=== PATIENT | female | born 2000 | race Two or more races ===

== ENCOUNTER 2024-12-23 16:09 | Emergency (ER) | payer OTHER ==
[~2024-12-23] VITALS: Ht 167.6 cm; Wt 83.6 kg
--- NOTE | 2024-12-23 16:59 | ED.PDOC ---
Melissa. trauma (HPI) HPI Comments A 24 YEAR OLD FEMALE PRESENTS TO THE ED WITH COMPLAINT OF HEADACHE S/P HEAD INJURY. PATIENT STATES SHE WAS AT WORK TODAY AND A PALLET OF BOXES ACCIDENTALLY FELL AND HIT THE TOP OF HER HEAD AND HER MIDDLE BACK AT ABOUT 0900 TODAY. PATIENT REPORTS SHE IS NOW EXPERIENCING A HEADACHE AND MIDDLE BACK PAIN. PATIENT DENIES NECK INJURY, LOC, VISION CHANGES, FEVER, CHILLS, SHORTNESS OF BREATH, CHEST PAIN, ABDOMINAL PAIN, NAUSEA, VOMITING, OR OTHER COMPLAINTS. NO OTHER SYMPTOMS OR MODIFYING FACTORS AT THIS TIME. PATIENT IS ALERT, ORIENTED X 4, AND HAS STEADY GAIT. Chief Complaint: Head Injury Time Seen by MD: 16:13 Reviewed notes: Nurses Notes, Medications, Allergies Allergies: Coded Allergies: No Known Drug Allergy (Verified Allergy, Unknown, 12/23/24) Information Source: Patient Mode of Arrival: Ambulatory Severity: Moderate Timing: Hours Duration: Since onset, Hours Prehospital treatment: None Location: Back, Head Location of laceration: None Mechanism: Blunt trauma Associated signs and symtoms: Headache Past Medical History PAST MEDICAL HISTORY: Denies Surgical History: Denies all surgeries ERP BUSINESS ANALYST History: No Pertinent ERP BUSINESS ANALYST History Family History Family History: Reviewed,noncontributory to illness Social History Smoker: Non-Smoker Alcohol: Denies ETOH Use Drugs: Denies Drug Use Lives In: Home Constitutional: denies: chills, diaphoresis, fatigue, fever, malaise, sweats, weakness, others EENTM: denies: blurred vision, double vision, ear bleeding, ear discharge, ear drainage, ear pain, ear ringing, eye pain, eye redness, hearing loss, mouth pain, mouth swelling, nasal discharge, nose bleeding, nose congestion, nose pain, photophobia, tearing, throat pain, throat swelling, voice changes, others Respiratory: denies: cough, hemoptysis, orthopnea, SOB at rest, shortness of breath, SOB with excertion, stridor, wheezing, others Cardiovascular: denies: chest pain, dizzy spells, diaphoresis, Dyspnea on exertion, edema, irregular heart beat, left arm pain, lightheadedness, palpitations, PND, syncope, others Gastrointestinal: denies: abdomen distended, abdominal pain, blood streaked bowels, constipated, diarrhea, dysphagia, difficulty swallowing, hematemesis, melena, nausea, poor appetite, poor fluid intake, rectal bleeding, rectal pain, vomiting, others Genitourinary: denies: abnormal vagina bleeding, burning, dyspareunia, dysuria, flank pain, frequency, hematuria, incontinence, pain, , vagina discharge, urgency, others Neurological: reports: headache; denies: dizziness, fainting, left sided numbness, left sided weakness, numbness, paresthesia, pre-existing deficit, right sided numbness, right sided weakness, seizure, speech problems, tingling, tremors, weakness, others Musculoskeletal: reports: back pain, muscle pain; denies: gout, joint pain, joint swelling, muscle stiffness, neck pain, others Integumetry: denies: bruises, change in color, change in hair/nails, dryness, laceration, lesions, lumps, rash, wounds, others Allergic/Immunocompromised: denies: Difficulty Healing, Frequent Infections, Hives, Itching, others Hematologic/Lymphatic: denies: anemia, blood clots, easy bleeding, easy bruising, swollen glands, others Endocrine: denies: excessive hunger, excessive sweating, excessive thirst, excessive urination, flushing, intolerance to cold, intolerance to heat, unexplained weight gain, unexplained weight loss, others Psychiatric: denies: anxiety, bipolar disorder, depression, hopeless, panic disorder, schizophrenia, sleepless, suicidal, others All Other Systems: Reviewed and Negative Physical Exam General Appearance: No Apparent Distress, Normal HEENT: Head (NO CONTUSIONS AND HEMATOMAS OF SCALP, NO DEFORMITY. ), Normal ENT Inspection, PERRL/EOMI, Pharynx Normal, TMs Normal Neck: Full Range of Motion, Non-Tender, Normal, Normal Inspection Respiratory: Chest Non-Tender, Lungs Clear, No Accessory Muscle Use, No Respiratory Distress, Normal Breath Sounds Cardiovascular: No Edema, No JVD, No Murmur, No Gallop, Normal Peripheral Pulses, Regular Rate/Rhythm Breast Exam: Deferred Gastrointestinal: No Organomegaly, Non Tender, No Pulsatile Mass, Normal Bowel Sounds, Soft Genitalia: Deferred Pelvic: Deferred Rectal: Deferred Extremities: No calf tenderness, Normal capillary refill, Normal inspection, Normal range of motion, Non-tender, No pedal edema Musculoskeletal : Location: Bilateral Extremity Location: Back Apperance: Tenderness (MUSCLE SPASM OF MIDDLE BACK, NO BONY TENDERNESS, SWELLING AND DEFORMITY. ) Neurologic: Alert, inspector type II-XII nml as Tested, No Motor Deficits, Normal Affect, Normal Mood, No Sensory Deficits Cerebellar Function: Normal Reflexes: Normal Skin: Dry, Normal Color, Warm Peripheral Pulses: 2+ carotid (R), 2+ carotid (L), 2+ dorsalis pedis (R), 2+ dorsalis pedis (L) Lymphatic: No Adenopathy Was a procedure done? Was a procedure done?: No Differential Diagnosis Multiple Trauma: Closed Head Injury, Fractures, Spine Injury, Contusion, Other (MID BACK STRAIN, MUSCLE SPASM) X-Ray, Labs, Meds, VS Vital Signs Date Time Temp Pulse Resp B/P (MAP) Pulse Ox O2 Delivery O2 Flow Rate FiO2 12/23/24 17:00 98.8 72 20 135/82 (99) 97 98.8 12/23/24 17:00 72 20 97 Room Air 12/23/24 16:16 98.5 73 14 131/89 97 98.5 CLINICAL HISTORY: INJURY TECHNIQUE: Helical imaging carried out from skull base to vertex without intravenous contrast. This exam was performed according to our departmental dose optimization program. Up-to-date CT equipment and radiation dose reduction techniques are utilized as appropriate. CTDIVol: 56.4 mGy DLP: 968.7 mGy-cm WID: COMPARISON: None FINDINGS: The ventricles and subarachnoid spaces are normal in size and configuration. There is no midline shift or mass effect. The price white matter interfaces are maintained. The basal cisterns are patent. There is no evidence of acute intracranial hemorrhage or extra-axial fluid collection. The mastoid air cells and visualized paranasal sinuses are well-aerated aside from moderate mucosal th ickening of the bilateral frontal sinuses.. IMPRESSION: 1. No acute intracranial abnormality. 2. Moderate mucosal thickening of the bilateral frontal sinuses. Correlate clinically for acute sinusitis. ATED BY: ASTON MAHMOOD MD DICTATED DATE/TIME: 12/23/241704 SIGNED BY: ASTON MAHMOOD MD SIGNED DATE/TIME: 12/23/241704 CC: X-Ray, Labs, Meds, VS Comment EXTERNAL MEDICAL RECORDS REVIEWED: [NONE] INDEPENDENT HISTORIANS: [NONE] SOCIAL DETERMINANTS OF HEALTH: [NONE] LABS ORDERED: NONE REVIEWED AND INTERPRETED RESULTS: NONE IMAGING ORDERED: CT BRAIN XR T-SPINE: [INTERPRETED BY ME. NO ACUTE FINDINGS. NO FRACTURES OR DISLOCATION. PENDING RADIOLOGIST REPORT.] TREATMENTS ORDERED: TYLENOL 1G PO PROCEDURES PERFORMED: NONE CRITICAL CARE TIME: NONE I HAVE DISCUSSED THE PATIENT WITH THE ATTENDING PHYSICIAN DR. LEE AND HE AGREES WITH THE PATIENT'S PLAN OF CARE AND DISPOSITION. BASED ON HISTORY OF PRESENT ILLNESS, AND PHYSICAL EXAM, PATIENT WILL BE DISCHARGED HOME. DISCUSSED PLAN FOR DISCHARGE HOME WITH RX [MOTRIN AND ROBAXIN ]. MEDICATION WARNINGS GIVEN. SHARED DECISION MAKING: DISCUSSED WITH PATIENT THAT THEIR WORKUP WAS NORMAL. PATIENT INSTRUCTED TO FOLLOW UP WITH PRIMARY CARE PROVIDER IN 1-2 DAYS FOR RE- EVALUATION OF SYMPTOMS. PATIENT VERBALIZES UNDERSTANDING TO RETURN TO ED FOR NEW OR WORSENING SYMPTOMS OR IF FOLLOW UP WITH PCP CANNOT BE OBTAINED. PATIENT FEELS COMFORTABLE GOING HOME AT THIS TIME. ALL QUESTIONS ADDRESSED AT TIME OF DISCHARGE. Images Reviewed?: Images reviewed and evaluated by me Time of 1ST Reevaluation: 17:36 Reevaluation 1ST: Improved Patient Education/Counseling: Diagnosis, Treatment, Need For Follow Up Family Education/Counseling: Diagnosis, Treatment, Need For Follow Up Medical Screening: No EMC Exist At This Time Departure 1 Departure Time of Disposition: 17:36 Impression: Primary Impression: Acute headache Qualified Codes: G44.319 - Acute post-traumatic headache, not intractable Additional Impressions: Head injury Qualified Codes: S09.90XA - Unspecified injury of head, initial encounter Strain of mid-back Qualified Codes: S29.012A - Strain of muscle and tendon of back wall of thorax, initial encounter Disposition: 01 HOME / SELF CARE / HOMELESS Condition: Stable Additional Instructions: FOLLOW-UP WITH [facility] IN 1-2 DAYS. TAKE MEDICATIONS PRESCRIBED. RETURN TO ED FOR ANY NEW OR WORSENING SYMPTOMS. e-Prescriptions Methocarbamol (Methocarbamol) 750 Mg Tab 750 MG PO BID, #20 TAB Prov: YARA BECKER 12/23/24 Ibuprofen (Ibuprofen) 800 Mg Tab 1 TAB PO TID, #30 TAB Prov: YARA BECKER 12/23/24 Discharged With: Self, Relative Critical Care Note Critical Care Time?: No Stability Stability form required: No I personally scribed for YARA BECKER ([email or web address]) on 12/23/24 at 16:59. E lectronically submitted by Angel Evans ([email or web address]). I personally scribed for YARA BECKER ([email or web address]) on 12/23/24 at 17:14. E lectronically submitted by Angel Evans ([email or web address]). I personally scribed for YARA BECKER ([email or web address]) on 12/23/24 at 17:28. E lectronically submitted by Angel Evans ([email or web address]). YARA BECKER Dec 23, 2024 16:59
[2024-12-23 17:00] VITALS: BP 135/82; PULSE 72; RESP 20; TEMP 98.8; O2SAT 97
--- NOTE | 2024-12-23 17:08 | DVH ---
CLINICAL HISTORY: INJURY TECHNIQUE: Helical imaging carried out from skull base to vertex without intravenous contrast. This e xam was performed according to our departmental dose optimization program. Up-to-date CT equipment an d radiation dose reduction techniques are utilized as appropriate. CTDIVol: 56.4 mGy DLP: 968.7 mGy-cm WID: COMPARISON: None FINDINGS: The ventricles and subarachnoid spaces are normal in size and configuration. There is no midline dinora ft or mass effect. The price white matter interfaces are maintained. The basal cisterns are patent. Th ere is no evidence of acute intracranial hemorrhage or extra-axial fluid collection. The mastoid air cells and visualized paranasal sinuses are well-aerated aside from moderate mucosal thickening of the bilateral frontal sinuses.. IMPRESSION: 1. No acute intracranial abnormality. 2. Moderate mucosal thickening of the bilateral frontal sinuses. Correlate clinically for acute sinu sitis.
[2024-12-23] MEDS ORDERED: METH-1182 PO (17:38)
[2024-12-23] MEDS ORDERED: IBUP-1456 PO (17:38)
[2024-12-23] MEDS: ACETAMINOPHEN 500 MG TAB or CAP PO ONE (17:48)
--- NOTE | 2024-12-23 17:51 | DVH ---
Indication: INJURY Technique: XY SPINE THORACIC 2VIEWXY Comparison: None FINDINGS/IMPRESSION: Thoracic heights are maintained. Mild thoracic dextrocurvature. Disc spaces preserved.
== END 2024-12-23 17:53 | disposition home or self-care (01) ==
LOC: ER 16:15
DX: S29.012A Strain of muscle and tendon of back wall of thorax, initial encounter (principal); S09.8XXA Other specified injuries of head, initial encounter; R51.9 Headache, unspecified; W22.8XXA Striking against or struck by other objects, initial encounter; Y93.89 Activity, other specified; Y92.89 Other specified places as the place of occurrence of the external cause; Y99.8 Other external cause status
CPT/HCPCS: 70450; 72070